=== PATIENT | female | born 1995 | race Hispanic/Latino ===

== ENCOUNTER 2019-06-21 01:39 | Day surgery (SDC) | payer OTHER ==
[2019-06-21] VITALS (8 sets, daily range): BP systolic 107–128; BP diastolic 56–68
[~2019-06-21] VITALS: Ht 157.5 cm; Wt 97.4 kg
[~2019-06-21 01:39] MED LIST: MORPHINE 2 MG/ML 1ML VIAL (J2270) IV PRN
[2019-06-21] MEDS ORDERED: LR 1,000 ML IV SCH ×2 (03:00→09:00)
[2019-06-21] MEDS ORDERED: BUPIVACAINE HCL 0.25% 30 ML VIAL As Ordered ONE (07:28)
[2019-06-21] MEDS ORDERED: BUPIVACAINE/EPIN 0.25% 30 ML VIAL As Ordered ONE (07:29)
[2019-06-21] MEDS ORDERED: ZOSYN 3.375 GM VIAL (J2543) As Ordered ONE (08:01)
[2019-06-21] MEDS ORDERED: MIDAZOLAM INJ 2 MG/2 ML VIAL (J2250) As Ordered ONE (08:26)
[2019-06-21] MEDS ORDERED: fentaNYL 100 MCG/2 ML INJECTION (J3010) As Ordered ONE ×2 (08:26→08:52)
[2019-06-21] MEDS ORDERED: KETOROLAC 60 MG/2 ML VIAL (J1885) As Ordered ONE (08:26)
[2019-06-21] MEDS ORDERED: ONDANSETRON 4MG/2ML VIAL (J2405) As Ordered ONE ×2 (08:26→10:10)
[2019-06-21] MEDS ORDERED: SEVOFLURANE INHAL SOLN 250 ML BTL As Ordered ONE (08:26)
[2019-06-21] MEDS ORDERED: DESFLURANE 240 ML INHALANT As Ordered ONE (08:26)
[2019-06-21] MEDS ORDERED: ROCURONIUM BROMIDE 50 MG/5 ML VIAL As Ordered ONE (08:26)
[2019-06-21] MEDS ORDERED: PROPOFOL 200 MG/20 ML VIAL As Ordered ONE (08:26)
[2019-06-21] MEDS ORDERED: LIDOCAINE 2% INJ 100 MG/5 ML SDV (FOR ANES.) As Ordered ONE (08:26)
[2019-06-21] MEDS ORDERED: ACETAMINOPHEN 1000MG 100ML IV BTL (OFIRMEV) (J0131 PER 10MG) As Ordered ONE (08:26)
[2019-06-21] MEDS ORDERED: METOCLOPRAMIDE INJ 10MG/2ML VIAL (J2765) As Ordered ONE (08:26)
[2019-06-21] MEDS ORDERED: dexameTHASONE 4 MG/ML 1ML VIAL (J1100) As Ordered ONE (08:26)
[2019-06-21] MEDS ORDERED: NEOSTIGMINE 10 MG/10 ML VIAL (J2710) As Ordered ONE ×2 (08:27→08:45)
[2019-06-21] MEDS ORDERED: GLYCOPYRROLATE INJ 0.2 MG/ML 2 ML VIAL As Ordered ONE (08:27)
[2019-06-21] MEDS ORDERED: ZOSYN 3.375 GM VIAL (J2543) IV ONE (08:33)
[2019-06-21] MEDS ORDERED: SUGAMMADEX SODIUM 500 MG/5 ML VIAL (BRIDION) As Ordered ONE (08:48)
[2019-06-21] MEDS ORDERED: ONDANSETRON 4MG/2ML VIAL (J2405) IV PRN ×2 (09:00)
[2019-06-21] MEDS ORDERED: SENOKOT S TAB PO SCH (09:00)
[2019-06-21] MEDS ORDERED: fentaNYL 100 MCG/2 ML INJECTION (J3010) IV PRN (09:00)
[2019-06-21] MEDS ORDERED: KETOROLAC 30 MG/ML VIAL (J1885) IV PRN (09:00)
[2019-06-21] MEDS ORDERED: ACETAMINOPHEN TAB 650MG DOSE (2X325MG) PO PRN (09:00)
[2019-06-21] MEDS ORDERED: NORCO, ANEXSIA 5/325MG TABLET (HYDROcodone/ACETAMINOPHEN) PO PRN (09:00)
[2019-06-21] MEDS ORDERED: HYDR-4571 PO (09:05)
[2019-06-21] MEDS ORDERED: PERCOCET 5MG/325MG TAB As Ordered ONE ×2 (09:22→09:56)
[2019-06-21] MEDS: PERCOCET 5MG/325MG TAB PO PRN ×2 (09:25→09:58)
[2019-06-21] MEDS ORDERED: diazePAM 5 MG TAB As Ordered ONE (09:26)
[2019-06-21] MEDS ORDERED: diazePAM 5 MG TAB PO ONE (09:30)
--- NOTE | 2019-06-21 16:30 | HPE ---
DATE OF ADMISSION: 06/21/2019 CHIEF COMPLAINT: Right lower quadrant pain. HISTORY OF PRESENT ILLNESS: Patient is a 24-year-old female who presents with right lower quadrant pain that started around 2-3 in the afternoon yesterday, and by the evening pain got worse. She had some nausea. No vomiting. No fevers or chills. No problems with urination or bowel movements, but it did hurt to walk, any movement of the right leg. She went to [facility], where she was evaluated and had normal vital signs and labs, but she had signs of early appendicitis with dilated, thickened tip of her appendix. Because of that she was transferred over to [facility]. Recommendation was to proceed with surgical intervention. PAST MEDICAL HISTORY: Negative. PAST SURGERIES: Dilatation and curettage (D and C). SOCIAL HISTORY: Denies drug, alcohol, tobacco usage. ALLERGIES: None. MEDICATIONS: None. FAMILY HISTORY: Noncontributory. REVIEW OF SYSTEMS: Pertinent positives and negatives in history of present illness (HPI). PHYSICAL EXAMINATION: GENERAL: Alert and oriented times three. No acute distress. VITAL SIGNS: Temperature 97.2, pulse 89, respirations 18, blood pressure 121/64, pulse oximetry 100% on room air. HEENT: Pupils equally round and react light and accommodation. HEART: S1, S2, regular rate and rhythm. LUNGS: Clear to auscultation bilaterally. ABDOMEN: Soft, tender to palpation with localized guarding in the right lower quadrant only. No rebound or rigidity. EXTREMITIES: No clubbing, cyanosis, or edema. LABORATORY DATA: Within normal limits. IMAGING STUDIES: CT showed dilated tip of the appendix, measuring 8 mm with slight surrounding inflammation. No obvious signs of perforation or abscess. ASSESSMENT AND PLAN: The patient is a 24-year-old female with signs of early acute appendicitis. Recommendation is to proceed laparoscopic, possible open, appendectomy. Risks and benefits of the procedure, not limited to but including, bleeding, infection, hernia formation, damage to surrounding structures, need for further surgery were discussed in detail with the patient. Informed consent was obtained. Procedure is planned. Postoperatively, as long as she is doing well, plan will be to discharge home this afternoon.
--- NOTE | 2019-06-23 11:40 | RO ---
DATE OF PROCEDURE: 06/21/2019 PREOPERATIVE DIAGNOSIS: Acute appendicitis. POSTOPERATIVE DIAGNOSIS: Acute appendicitis PROCEDURE: Laparoscopic appendectomy. SURGEON: Dr. Raul Juares. MANAGER COMMUNICATION: None. ANESTHESIA: General: ESTIMATED BLOOD LOSS: 5 COMPLICATIONS: None. INDICATIONS FOR PROCEDURE: The patient 24-year female with acute appendicitis. Recommendations to proceed with laparoscopic possible open appendectomy. Risks, benefits of procedure not limited but including bleeding, infection, hernia formation, damage to surrounding structures, need for further surgery discussed in detail with the patient. Informed consent was obtained, procedure was planned. DESCRIPTION OF PROCEDURE: The patient brought to operating room 1. After sufficient sedation, the abdomen was sterilely prepped and draped. Next, time-out was done to confirm proper patient and proper procedure. Following that a 5 mm incision made in the left lower quadrant under the ribcage. The Veress needle was inserted and t he abdomen was insufflated to 15 mmHg. Next, the Veress needle was removed and a 5 mm OptiView port was used to gain access to the abdomen. Once the abdomen was entered, 8 mm port was placed supraumbilically in the midline, another 5 mm port suprapubically in the midline. The right lower quadrant was then examined, the appendix was identified. The mesoappendix was taken down all the way to the base of the appendix using the Enseal. Once that was reached, it was ligated with 2 PDS Endoloops and then amputated as well using the Enseal. Appendix was placed inside of 5 mm EndoCatch bag brought out through the 8 mm port site. After doing so the port site had to be slightly dilated to remove it. This fascial defect at that site was then closed with interrupted 0 Vicryl sutures using a Arthur-Hardy needle. Once this was completed, the abdomen desufflated. Skin incisions closed with #4-0 Vicryl subcuticular sutures. The abdomen cleaned and dried. Steri-Strips, 4x4 and tape were applied thus ending procedure.
== END 2019-06-21 16:20 | disposition home or self-care (01) ==
LOC: M SDC 01:39 → M PED 01:41 → M SDC 16:20
PROVIDERS: ATTEND Surgery
DX: K35.80 Unspecified acute appendicitis (principal); D64.9 Anemia, unspecified
CPT/HCPCS: 44970; 88304; 96361; 96374; J0131; J1100; J1885; J2250; J2405; J2543; J2710; J2765; J3010

== ENCOUNTER 2020-11-16 14:08 | Emergency (ER) | payer OTHER ==
[~2020-11-16] VITALS: Ht 157.5 cm; Wt 100.7 kg
[~2020-11-16 14:08] MED LIST changes: +HYDR-4571 PO; -MORPHINE 2 MG/ML 1ML VIAL (J2270) IV PRN
[2020-11-16] MEDS ORDERED: iron PO (14:18)
[2020-11-16] MEDS ORDERED: LOPE1LIQ18 PO (14:18)
[2020-11-16 14:57] LABS: BASO % 0.3 % (0.0-1.0); EOS # 0.1 10^3/uL (0.0-0.5); EOS % 1.1 % (0.0-3.0); HEMATOCRIT 40.6 % (36.0-47.0); HEMOGLOBIN 12.9 g/dl (12.0-15.5); LYMPH # 1.5 10^3/uL (1.5-5.0); LYMPH % 18.2 % (24.0-44.0); MEAN CORPUSCULAR HGB CONC 31.8 g/dl (32.0-36.5); MEAN CORPUSCULAR VOLUME 88.3 fl (80.0-96.0); MONO # 0.4 10^3/uL (0.0-0.8); NEUTROPHILS % 75.1 % (36.0-66.0); PLATELET COUNT, AUTOMATED 252 10^3/uL (150-450)
[2020-11-16] MEDS ORDERED: ONDANSETRON 4 MG ORAL DISINTEGRATING TAB PO ONE (15:15)
[2020-11-16] MEDS ORDERED: ONDA4TAB6 PO ×2 (17:43→17:45)
[2020-11-16] MEDS ORDERED: CEPH500C PO ×2 (17:43→17:45)
[2020-11-16 17:48] VITALS: BP 116/63
== END 2020-11-16 18:00 | disposition home or self-care (01) ==
LOC: M ED 14:08
DX: N39.0 Urinary tract infection, site not specified (principal); K52.9 Noninfective gastroenteritis and colitis, unspecified
CPT/HCPCS: 36415; 81001; 85025; 87086; 99283; Q0162

== ENCOUNTER 2021-03-14 21:39 | Emergency (ER) | payer OTHER ==
[~2021-03-14] VITALS: Ht 160 cm; Wt 103.9 kg
[2021-03-14 21:39] VITALS: BP 117/63
[~2021-03-14 21:39] MED LIST changes: +CEPH500C PO; +LOPE1LIQ18 PO; +ONDA4TAB6 PO; +iron PO
== END 2021-03-15 00:02 | disposition left against medical advice (07) ==
LOC: M ED 21:39
DX: Z53.21 Procedure and treatment not carried out due to patient leaving prior to being seen by health care provider (principal)

== ENCOUNTER → 2021-05-05 | Outpatient (CLI) | payer OTHER ==
--- NOTE | 2021-05-06 08:35 | REP ---
INDICATION: Bilateral breast pain lower outer aspect COMPARISON: None TECHNIQUE: Real-time sonographic evaluation of each breast over the region of clinical interest lower outer aspect bilaterally FINDINGS: There are no cystic or solid masses IMPRESSION: ACR category 2 benign bilateral breast ultrasound. And negative ultrasound should never curtail biopsy of a clinically palpable mass or clinically suspicious area the breast. <Electronically signed by Mohan France > 05/06/21 [id number]
== END ==
LOC: M WHC 13:50
PROVIDERS: ATTEND Registered Nurse Maternal Newborn
DX: N64.4 Mastodynia (principal)